=== PATIENT | male | born 1975 | race Caucasian/White ===

== ENCOUNTER 2023-01-20 15:30 | Emergency (ER) | payer OTHER ==
[~2023-01-20] VITALS: Ht 177.8 cm; Wt 132.4 kg
[2023-01-20] VITALS (10 sets, daily range): BP systolic 101–139; BP diastolic 48–72
[~2023-01-20 15:30] MED LIST: AMOXICILLIN875 MG OR; AUGMENTIN875 MG OR; LORTAB 5 OR; LORTAB 7.5 OR; MEDDOSEPAK PO; NO HOME MEDS
[2023-01-20 16:02] LABS: BASO% 0.4 % (0-3); EOS% 2.8 % (0-8); HEMATOCRIT 41.1 % (39.0-50.0); IMMATURE GRANULOCYTES 0.2 % (0.0-5.0); LYMPH% 17.7 % (15-41); MEAN CELL VOLUME 88.2 fL CALC (80.0-100.0); MEAN CORPUSCULAR HGB CONC 34.1 g/dL CAL (32.0-36.0); MONO% 4.9 % (2-13); NEUT# 7.59 thou/uL (1.82-7.42); RED BLOOD COUNT 4.66 mill/uL (4.70-6.10); RED CELL DISTRI WIDTH 14.4 % (11.5-15.5)
[2023-01-20 16:15] LABS: ALBUMIN 4.4 g/dL (3.2-5.0); ALKALINE PHOSPHATASE 122 u/l (38-126); ANION GAP 11 (6-22 (CALC)); BUN 16 mg/dL (9-20); BUN/CREATININE RATIO 26 (12-20 (CALC)); CARBON DIOXIDE 28 mmol/l (22-30); CHLORIDE 100 mmol/l (95-108); CREATININE 0.6 mg/dL (0.7-1.3); GFR FOR AFR.AMER. > 60 ML/MIN (>=60 (CALC)); GFR OTHER RACES > 60 ML/MIN (>=60 (CALC)); POTASSIUM 4.2 mmol/l (3.5-5.1); SGOT/AST 31 u/l (17-59); SODIUM 135 mmol/l (137-146); TOTAL PROTEIN 7.6 g/dL (6.3-8.2)
[2023-01-20 16:16] LABS: BILIRUBIN, TOTAL 1.2 mg/dL (0.2-1.3)
[2023-01-20 17:55] LABS: URINE BILIRUBIN - DIPSTICK Negative (NEGATIVE); URINE BLOOD DIPSTICK Negative (NEGATIVE); URINE GLUCOSE - DIPSTICK >=1000 mg/dL (NEGATIVE); URINE KETONE Trace mg/dL (NEGATIVE); URINE LEUK ESTERASE Negative (NEGATIVE); URINE NITRITE - DIPSTICK Negative (Negative); URINE PROTEIN - DIPSTICK Negative (NEG-TRACE); URINE SPECIFIC GRAVITY 1.015; URINE UROBILINOGEN - DIPSTICK 0.2 E.U./dL (0.2)
[2023-01-20 17:56] LABS: URINE COLOR Yellow
[2023-01-20] MEDS ORDERED: ATORVASTATIN CA40 MG PO (18:47)
[2023-01-20] MEDS ORDERED: BRILINTA90 MG PO ×2 (18:47→18:49)
[2023-01-20] MEDS ORDERED: GABAPENTIN300 M2 PO (18:47)
[2023-01-20] MEDS ORDERED: ENTRESTO 24-261 TAB (18:48)
[2023-01-20] MEDS ORDERED: ALDACTONE25 MG PO (18:48)
[2023-01-20] MEDS ORDERED: FARXIGA10 MG (18:48)
[2023-01-20] MEDS ORDERED: CARVEDILOL6.25 MG PO (18:48)
[2023-01-20] MEDS ORDERED: ASPIRINCHW 81MG PO (18:49)
[2023-01-20] MEDS ORDERED: NITROGLYCERIN0.4 MG SL (19:11)
== END 2023-01-20 19:48 | disposition home or self-care (01) | DRG 639 ==
LOC: ED 15:30
PROVIDERS: Family Medicine
DX: E11.69 Type 2 diabetes mellitus with other specified complication (principal); I20.8 Other forms of angina pectoris; I10 Essential (primary) hypertension; Z95.5 Presence of coronary angioplasty implant and graft

== ENCOUNTER 2023-05-14 22:13 | Observation (INO) | payer OTHER ==
[~2023-05-14] VITALS: Ht 177.8 cm; Wt 62.6 kg
[~2023-05-14 22:13] MED LIST changes: +ALDACTONE25 MG PO; +ASPIRINCHW 81MG PO; +ATORVASTATIN CA40 MG PO; +BRILINTA90 MG PO; +CARVEDILOL6.25 MG PO; +ENTRESTO 24-261 TAB; +FARXIGA10 MG; +GABAPENTIN300 M2 PO; +NITROGLYCERIN0.4 MG SL
--- NOTE | 2023-05-14 22:20 | NUR ---
PT AMB TO ROOM WITH STEADY GAIT
[2023-05-14 23:36] LABS: BASO% 0.4 % (0-3); EOS% 0.8 % (0-8); HEMATOCRIT 38.1 % (39.0-50.0); HEMOGLOBIN 12.5 g/dl (14.0-18.0); IMMATURE GRANULOCYTES 0.2 % (0.0-5.0); LYMPH% 15.9 % (15-41); MEAN CELL VOLUME 90.7 fL CALC (80.0-100.0); MEAN CORPUSCULAR HGB 29.8 pG CALC (26.0-32.0); MEAN CORPUSCULAR HGB CONC 32.8 g/dL CAL (32.0-36.0); MONO% 11.5 % (2-13); NEUT# 3.71 thou/uL (1.82-7.42); NEUT% 71.2 % (42-76); RED BLOOD COUNT 4.2 mill/uL (4.70-6.10); RED CELL DISTRI WIDTH 14.2 % (11.5-15.5)
[2023-05-14 23:38] LABS: URINE BILIRUBIN - DIPSTICK Negative (NEGATIVE); URINE BLOOD DIPSTICK Trace-intact (NEGATIVE); URINE GLUCOSE - DIPSTICK >=1000 mg/dL (NEGATIVE); URINE KETONE Negative (NEGATIVE); URINE LEUK ESTERASE Negative (NEGATIVE); URINE NITRITE - DIPSTICK Negative (Negative); URINE PROTEIN - DIPSTICK Negative (NEG-TRACE)
[2023-05-14 23:45] LABS: URINE COLOR Yellow
[2023-05-14 23:50] LABS: ALBUMIN 4.2 g/dL (3.2-5.0); ALKALINE PHOSPHATASE 120 u/l (38-126); BUN 13 mg/dL (9-20); BUN/CREATININE RATIO 21 (12-20 (CALC)); CHLORIDE 104 mmol/l (95-108); CREATININE 0.6 mg/dL (0.7-1.3); GFR FOR AFR.AMER. > 60 ML/MIN (>=60 (CALC)); GFR OTHER RACES > 60 ML/MIN (>=60 (CALC)); POTASSIUM 3.7 mmol/l (3.5-5.1); SGOT/AST 32 u/l (17-59); SODIUM 138 mmol/l (137-146); TOTAL PROTEIN 6.9 g/dL (6.3-8.2)
[2023-05-14 23:51] LABS: ANION GAP 17 (6-22 (CALC)); BILIRUBIN, TOTAL 0.6 mg/dL (0.2-1.3); CARBON DIOXIDE 21 mmol/l (22-30)
[2023-05-15] VITALS (12 sets, daily range): BP systolic 109–139; BP diastolic 52–79
--- NOTE | 2023-05-15 | NUR ---
DR HOLM AT BEDSIDE TO DISCUSS CONTINUING TESTING AND WAIT TIME; MONITORING DEVICES APPLIED; NO S/S OF DISTRESS NOTED
--- NOTE | 2023-05-15 00:51 | NUR ---
PATIENT RESTING IN BED, AWAITING RESULTS. CALL LIGHT AND BEDSIDE TABLE WITHIN REACH. DAUGHTER AT [facility].
--- NOTE | 2023-05-15 02:00 | NUR ---
PT ADVISED OF CONTINUED WAIT TIME FOR ADMISSION; MONITORING DEVICES IN PLACE; PO FLUIDS GIVEN; PT DENIES ANY OTHER NEEDS AT THIS TIME; CALL LIGHT WITHIN REACH
--- NOTE | 2023-05-15 03:01 | NUR ---
When patient arrived to [facility] surg weight was taken 62.6 kg. The glucose meter was checked 140 and the nurse was notified.
--- NOTE | 2023-05-15 03:01 | NUR ---
Admission Note Report Given to: BERNARD GOMES Transported by: X Wheelchair Stretcher Transported with: X Nurse Transporter X Patent IV O2 X Tongue Trimmer Location: ICU X MS2
--- NOTE | 2023-05-15 03:15 | NUR ---
received report from ed nurse. pt was brought up via wheel chair. pt orientated to room and to call light system. no signs of pain or distress at this time. safety precautions in place and call light within reach.
--- NOTE | 2023-05-15 06:34 | NUR ---
pt glucose 125 @0610
--- NOTE | 2023-05-15 08:00 | NUR ---
PT IN BED WITH HOB UP. PT IS ALERT AND ORIENTED X 3. PT HAS C/O HEACHACHE AND MEDICATED WITH TYLENOL. PT HAS TELE ON WITH ALL LEADS ATTACHED. IV SITE TO LH CLEAN AND INTACT WITH NS @ 100 ML/HR INFUSING. PT LUNGS CLEAT THROUGHOUT AND BREATHING IS NON LABORED. ABD IS SOFT WITH ACTIVE BS. PT AMBULATES TO BATHROOM FOR TOILETING NEEDS. PT HAS NO C/O PAIN AT THIS TIME. PT HAS CALL LIGHT WITHIN REACH.
--- NOTE | 2023-05-15 12:00 | NUR ---
PT IN BED WITH HOB UP EATING LUNCH. PT HAS NO CHANGE IN STATUS AT THIS TIME. PT HAS CALL LIGHT WITHIN REACH AND SAFETY MEASURES IN PLACE AT THIS TIME.
[2023-05-15 13:47] LABS: BASO% 0.3 % (0-3); HEMATOCRIT 37.8 % (39.0-50.0); HEMOGLOBIN 12.5 g/dl (14.0-18.0); LYMPH% 32.2 % (15-41); MEAN CELL VOLUME 90.2 fL CALC (80.0-100.0); MEAN CORPUSCULAR HGB 29.8 pG CALC (26.0-32.0); MEAN CORPUSCULAR HGB CONC 33.1 g/dL CAL (32.0-36.0); MONO% 11.2 % (2-13); NEUT# 2.18 thou/uL (1.82-7.42); NEUT% 55.3 % (42-76); RED BLOOD COUNT 4.19 mill/uL (4.70-6.10); RED CELL DISTRI WIDTH 14.2 % (11.5-15.5)
[2023-05-15 13:59] LABS: ALBUMIN 3.8 g/dL (3.2-5.0); ALKALINE PHOSPHATASE 109 u/l (38-126); ANION GAP 15 (6-22 (CALC)); BILIRUBIN, TOTAL 0.5 mg/dL (0.2-1.3); BUN 11 mg/dL (9-20); BUN/CREATININE RATIO 18 (12-20 (CALC)); CARBON DIOXIDE 22 mmol/l (22-30); CHLORIDE 105 mmol/l (95-108); CREATININE 0.6 mg/dL (0.7-1.3); GFR FOR AFR.AMER. > 60 ML/MIN (>=60 (CALC)); GFR OTHER RACES > 60 ML/MIN (>=60 (CALC)); SGOT/AST 32 u/l (17-59); SODIUM 137 mmol/l (137-146); TOTAL PROTEIN 6.3 g/dL (6.3-8.2)
--- NOTE | 2023-05-15 16:00 | NUR ---
PT IN BED WITH HOB UP, PT HAS NO C/O PAIN AT THIS TIME. PT HAS NO CHANGE IN STATUS. PT HAS CALL LIGHT WITHIN REACH AND SAFETY MEASURES IN PLACE AT THIS TIME.
--- NOTE | 2023-05-15 18:03 | NUR ---
Discharge instructions given. Patient verbalizes understanding of same. Discharged in stable condition via Wheelchair to Home with family. All belongings sent with pt.
== END 2023-05-15 18:00 | disposition home or self-care (01) | DRG 866 ==
LOC: ED 22:13 → ED-I 05-15 01:00 → ED 05-15 01:26 → MS2 05-15 01:27
PROVIDERS: Emergency Medicine; ADMIT Student in an Organized Health Care Education/Training Program; ATTEND Student in an Organized Health Care Education/Training Program
DX: B34.9 Viral infection, unspecified (principal); I11.0 Hypertensive heart disease with heart failure; I50.9 Heart failure, unspecified; E11.9 Type 2 diabetes mellitus without complications; I25.10 Atherosclerotic heart disease of native coronary artery without angina pectoris; I25.2 Old myocardial infarction; Z95.5 Presence of coronary angioplasty implant and graft; Z79.02 Long term (current) use of antithrombotics/antiplatelets; Z20.822 Contact with and (suspected) exposure to COVID-19